=== PATIENT | female | born 1935 | race Caucasian/White ===

== ENCOUNTER 2018-01-17 11:50 | Inpatient (IN) | payer MEDICARE, MEDICAID ==
[~2018-01-17] VITALS: Ht 160 cm; Wt 40.4 kg
[2018-01-17] MEDS ORDERED: IV NORMAL SALINE 1000 ML BAG IV ONE (12:15)
[2018-01-17] MEDS ORDERED: POTA10TA15 PO (12:46)
[2018-01-17] MEDS ORDERED: VALS320T2 PO (12:46)
[2018-01-17] MEDS ORDERED: MELO15TA13 PO (12:46)
[2018-01-17] MEDS ORDERED: GLIP5TAB13 PO (12:46)
[2018-01-17] MEDS ORDERED: PANT40TA4 PO (12:46)
[2018-01-17] MEDS ORDERED: LEVO75TA PO (12:46)
[2018-01-17] MEDS ORDERED: ERGO2000 PO (12:46)
[2018-01-17 12:48] LABS: BASOPHILS % (AUTO) 0.3 % (0.0-2.0); EOSINOPHILS % (AUTO) 0.1 % (0.0-7.0); HEMATOCRIT 36.2 % (31.2-41.9); HEMOGLOBIN 11.5 g/dL (10.9-14.3); LYMPHOCYTES # (AUTO) 0.7 K/uL (20.0-40.0); LYMPHOCYTES % (AUTO) 16.5 % (20.5-51.5); MEAN CORPUSCULAR HEMOGLOBIN 26.2 uug (24.7-32.8); MEAN CORPUSCULAR HGB CONC 32 g/dL (32.3-35.6); MEAN CORPUSCULAR VOLUME 82.2 fL (75.5-95.3); MONOCYTES # (AUTO) 0.3 K/uL (2.0-10.0); MONOCYTES % (AUTO) 8.1 % (0.0-11.0); NEUTROPHILS # (AUTO) 3.2 K/uL (1.8-8.9); PLATELET COUNT (AUTO) 252 K/uL (179-408); RED BLOOD CELL COUNT(AUTO) 4.41 MIL/uL (3.63-4.92); WHITE BLOOD COUNT (AUTO) 4.3 K/uL (3.8-11.8)
[2018-01-17 12:55] LABS: CARBON DIOXIDE 31 mmol/L (21-32); CHLORIDE 100 mmol/L (98-107); CREATININE 1.3 mg/dL (0.6-1.3); GLUCOSE 98 mg/dL (74-106); POTASSIUM 3.8 mmol/L (3.5-5.1); UREA NITROGEN, BLOOD 22 mg/dL (7-18)
[2018-01-17] MEDS ORDERED: ATOR20TA PO ×2 (13:07)
[2018-01-17] MEDS ORDERED: OXYC-128 PO (13:07)
[2018-01-17] MEDS ORDERED: GABA-534 PO (13:07)
[2018-01-17] MEDS ORDERED: TRIA0.252 PO (13:07)
[2018-01-17] MEDS ORDERED: FLUO-120 PO (13:07)
[2018-01-17] MEDS ORDERED: ACET-2605 PO (13:07)
[2018-01-17] MEDS ORDERED: HYDR-3326 PO (13:07)
[2018-01-17] MEDS ORDERED: LEVE500T9 PO (13:07)
[2018-01-17 13:09] LABS: ALANINE AMINOTRANSFERASE 8 U/L (14-59); ALKALINE PHOSPHATASE 47 U/L (50-136); ASPARTATE AMINOTRANSFERASE 18 U/L (15-37); BILIRUBIN,DIRECT 0.2 mg/dL (0.0-0.2); BILIRUBIN,TOTAL 0.7 mg/dL (0.2-1.0); TOTAL PROTEIN, SERUM 8.5 g/dL (6.4-8.2)
[2018-01-17] MEDS ORDERED: predniSONE 10 MG TABLET PO ONE (13:30)
[2018-01-17] MEDS ORDERED: ALBUTEROL SULFATE 2.5 MG/3 ML NEBU NEB ONE (13:30)
[2018-01-17] MEDS ORDERED: IPRATROPIUM BROMIDE 0.5 MG/2.5 ML NEBU NEB ONE (13:30)
[2018-01-17 15:51] VITALS: BP 141/71
[2018-01-17] MEDS ORDERED: MORPHINE SULFATE 2 MG/1 ML DISP.SYRIN IV PRN (18:30)
[2018-01-17] MEDS ORDERED: MAGNESIUM HYDROXIDE 30 ML LIQUID UDC PO PRN (18:30)
[2018-01-17] MEDS ORDERED: HYDROCODONE/APAP 5-325MG TABLET PO PRN (18:30)
[2018-01-17] MEDS ORDERED: ONDANSETRON 4 MG/2 ML VIAL IV PRN (18:30)
[2018-01-17] MEDS ORDERED: ACETAMINOPHEN 325 MG TABLET PO PRN (18:30)
[2018-01-17] MEDS ORDERED: hydrALAZINE HCL 25 MG TABLET PO PRN (18:45)
[2018-01-17] MEDS ORDERED: ALBUTEROL SULFATE 2.5 MG/3 ML NEBU NEB PRN (18:45)
[2018-01-17 20:00] VITALS: BP 173/79
[2018-01-17] MEDS ORDERED: DOCUSATE SODIUM 250 MG CAPSULE PO SCH (21:00)
[2018-01-17] MEDS: DOCUSATE SODIUM 100 MG CAPSULE PO SCH ×2 (21:00→22:23)
[2018-01-17 21:30] VITALS: BP 137/78
[2018-01-17] MEDS: GABAPENTIN 300 MG CAPSULE PO SCH (21:57)
[2018-01-17] MEDS: VALSARTAN 160 MG TABLET PO SCH (21:57)
[2018-01-17] MEDS: LEVETIRACETAM 500 MG TABLET PO SCH (21:58)
[2018-01-17] MEDS: TEMAZEPAM 15 MG CAPSULE PO PRN (22:23)
[2018-01-17] MEDS: MORPHINE SULFATE 4 MG/1 ML DISP.SYRIN IV PRN (22:58)
[2018-01-17] MEDS ORDERED: ENALAPRILAT DIHYDRATE INJ 1.25 MG in IV NORMAL SALINE 50 ML IV PRN (23:30)
[2018-01-18 00:17] VITALS: BP 101/54
[2018-01-18 04:00] VITALS: BP 121/70
[2018-01-18 05:51] VITALS: BP 121/70
[2018-01-18] MEDS: LEVOTHYROXINE SODIUM 75 MCG TABLET PO SCH (06:40)
[2018-01-18] MEDS: PANTOPRAZOLE SODIUM 40 MG TABLET.DR PO SCH (06:40)
[2018-01-18 06:51] LABS: IRON, SERUM 37 ug/dL (50-175)
[2018-01-18 06:54] LABS: ALANINE AMINOTRANSFERASE 7 U/L (14-59); ALKALINE PHOSPHATASE 37 U/L (50-136); ASPARTATE AMINOTRANSFERASE 17 U/L (15-37); BILIRUBIN,TOTAL 0.4 mg/dL (0.2-1.0); CARBON DIOXIDE 29 mmol/L (21-32); CHLORIDE 103 mmol/L (98-107); CHOLESTEROL 195 mg/dL (<200); GLUCOSE 88 mg/dL (74-106); HDL CHOLESTEROL 55 mg/dL (40-60); MAGNESIUM 1.6 mg/dL (1.8-2.4); PHOSPHOROUS 4.1 mg/dL (2.5-4.9); POTASSIUM 3.2 mmol/L (3.5-5.1); TOTAL PROTEIN, SERUM 6.6 g/dL (6.4-8.2); TRIGLYCERIDES 88 MG/DL (30-150); UREA NITROGEN, BLOOD 17 mg/dL (7-18)
[2018-01-18 07:07] LABS: BASOPHILS % (AUTO) 0.2 % (0.0-2.0); EOSINOPHILS % (AUTO) 0.5 % (0.0-7.0); LYMPHOCYTES # (AUTO) 1.4 K/uL (20.0-40.0); LYMPHOCYTES % (AUTO) 44.3 % (20.5-51.5); MEAN CORPUSCULAR HEMOGLOBIN 26.3 uug (24.7-32.8); MEAN CORPUSCULAR HGB CONC 32 g/dL (32.3-35.6); MEAN CORPUSCULAR VOLUME 82.6 fL (75.5-95.3); MONOCYTES # (AUTO) 0.4 K/uL (2.0-10.0); MONOCYTES % (AUTO) 13.4 % (0.0-11.0); NEUTROPHILS # (AUTO) 1.3 K/uL (1.8-8.9); NEUTROPHILS % (AUTO) 41.6 % (38.5-71.5); PLATELET COUNT (AUTO) 207 K/uL (179-408); RED BLOOD CELL COUNT(AUTO) 3.81 MIL/uL (3.63-4.92)
[2018-01-18 07:11] LABS: THYROID STIMULATING HORMONE 1.218 mIU/mL (0.358-3.740)
[2018-01-18 07:26] LABS: HEMATOCRIT 31.5 % (31.2-41.9); WHITE BLOOD COUNT (AUTO) 3.2 K/uL (3.8-11.8)
[2018-01-18] MEDS: FLUOXETINE HCL 20 MG CAPSULE PO SCH (08:43)
[2018-01-18] MEDS: VALSARTAN 160 MG TABLET PO SCH ×2 (08:47→21:49)
[2018-01-18 11:48] VITALS: BP 125/78
[2018-01-18] MEDS ORDERED: POTASSIUM CHLORIDE 20 MEQ POWDER PACKET PO ONE (12:30)
[2018-01-18] MEDS: MAGNESIUM SULFATE/D5W 100 ML IV SCH ×2 (12:46→14:22)
[2018-01-18 15:49] VITALS: BP 121/80
[2018-01-18 20:04] VITALS: BP 122/65
[2018-01-18] MEDS: GABAPENTIN 300 MG CAPSULE PO SCH (21:47)
[2018-01-18] MEDS: TEMAZEPAM 15 MG CAPSULE PO PRN (21:48)
[2018-01-18] MEDS: LEVETIRACETAM 500 MG TABLET PO SCH (21:48)
[2018-01-18] MEDS: MORPHINE SULFATE 4 MG/1 ML DISP.SYRIN IV PRN (21:49)
[2018-01-19] MEDS ORDERED: DEXTROSE 50% 50 ML DISP.SYRIN IV PRN (02:30)
[2018-01-19] MEDS: BLOOD SUGAR DIAGNOSTIC 1 EACH STRIP VI SCH ×5 (02:43→23:58)
[2018-01-19] MEDS: IV D5/ 0.9% NACL 1,000 ML IV PRN ×2 (02:54→17:25)
[2018-01-19 04:06] VITALS: BP 97/57
[2018-01-19] MEDS: LEVOTHYROXINE SODIUM 75 MCG TABLET PO SCH (06:12)
[2018-01-19] MEDS: PANTOPRAZOLE SODIUM 40 MG TABLET.DR PO SCH (06:12)
[2018-01-19 07:54] LABS: BASOPHILS % (AUTO) 0.2 % (0.0-2.0); EOSINOPHILS % (AUTO) 0.3 % (0.0-7.0); HEMATOCRIT 29.3 % (31.2-41.9); HEMOGLOBIN 9.3 g/dL (10.9-14.3); LYMPHOCYTES # (AUTO) 1.4 K/uL (20.0-40.0); LYMPHOCYTES % (AUTO) 36.8 % (20.5-51.5); MEAN CORPUSCULAR HEMOGLOBIN 26.2 uug (24.7-32.8); MEAN CORPUSCULAR HGB CONC 32 g/dL (32.3-35.6); MEAN CORPUSCULAR VOLUME 82.2 fL (75.5-95.3); MONOCYTES # (AUTO) 0.5 K/uL (2.0-10.0); MONOCYTES % (AUTO) 12.1 % (0.0-11.0); NEUTROPHILS # (AUTO) 1.9 K/uL (1.8-8.9); NEUTROPHILS % (AUTO) 50.6 % (38.5-71.5); PLATELET COUNT (AUTO) 210 K/uL (179-408); RED BLOOD CELL COUNT(AUTO) 3.56 MIL/uL (3.63-4.92); WHITE BLOOD COUNT (AUTO) 3.8 K/uL (3.8-11.8)
[2018-01-19 08:08] LABS: CARBON DIOXIDE 29 mmol/L (21-32); CHLORIDE 104 mmol/L (98-107); GLUCOSE 103 mg/dL (74-106); PHOSPHOROUS 3.8 mg/dL (2.5-4.9); POTASSIUM 3.6 mmol/L (3.5-5.1); UREA NITROGEN, BLOOD 15 mg/dL (7-18)
[2018-01-19] MEDS: VALSARTAN 160 MG TABLET PO SCH ×2 (08:20→20:22)
[2018-01-19] MEDS: FLUOXETINE HCL 20 MG CAPSULE PO SCH (08:20)
[2018-01-19 09:37] LABS: ABG BASE EXCESS 0.9 mmol/L; ABG HCO3 26.3 mmol/L; ABG PCO2 45.7 mmHg (35.0-45.0); ABG PH 7.378 (7.350-7.450); ABG SITE RIGHT RADIAL; ABG TOTAL HEMOGLOBIN 10.1 G/dL (12.0-16.0); COHb 1.2 % (0.5-1.5); MetHb 0.3 % (0.0-1.5); O2Hb 93.6 % (94.0-97.0); VENT MODE Room Air
[2018-01-19] MEDS ORDERED: IOHEXOL 300MG/ML 100 ML INFUS..BTL ONE (11:14)
[2018-01-19] MEDS ORDERED: IV NORMAL SALINE 100 ML ONE (11:14)
[2018-01-19 12:00] VITALS: BP 161/84
[2018-01-19 15:00] VITALS: BP 113/62
[2018-01-19 15:21] LABS: *BILIRUBIN,URIN NEGATIVE (NEGATIVE); *BLOOD, URINE 1+ (NEGATIVE); *COLOR,URINE YELLOW (YELLOW); *KETONES,URINE NEGATIVE (NEGATIVE); *PROTEIN,URINE NEGATIVE (NEGATIVE); *UROBILINOGEN,URINE 0.2 E.U./dl (NORMAL); LEUKOCYTE ESTERASE ,URINE NEGATIVE (NEGATIVE); NITRITE, URINE POSITIVE (NEGATIVE); PH,URINE 6.5 (5.0-8.0); UGLUCOSE NEGATIVE (NEGATIVE)
[2018-01-19 15:54] LABS: *CLARITY,URINE HAZY (CLEAR)
[2018-01-19 15:55] LABS: BACTERIA,URINE MANY /HPF (NONE SEEN); SQUAMOUS EPITHELIAL CELL,UR MODERATE /HPF (NONE SEEN)
[2018-01-19 16:00] VITALS: BP 133/73
[2018-01-19 20:06] VITALS: BP 150/84
[2018-01-19] MEDS: GABAPENTIN 300 MG CAPSULE PO SCH (20:21)
[2018-01-19] MEDS: DOCUSATE SODIUM 100 MG CAPSULE PO SCH (20:21)
[2018-01-19] MEDS: LEVETIRACETAM 500 MG TABLET PO SCH (20:21)
[2018-01-19] MEDS: TEMAZEPAM 15 MG CAPSULE PO PRN (20:22)
[2018-01-19] MEDS: MORPHINE SULFATE 4 MG/1 ML DISP.SYRIN IV PRN (20:23)
[2018-01-20 04:06] VITALS: BP 116/66
[2018-01-20] MEDS: BLOOD SUGAR DIAGNOSTIC 1 EACH STRIP VI SCH ×3 (05:51→17:22)
[2018-01-20] MEDS: LEVOTHYROXINE SODIUM 75 MCG TABLET PO SCH (06:05)
[2018-01-20] MEDS: PANTOPRAZOLE SODIUM 40 MG TABLET.DR PO SCH (06:06)
[2018-01-20] MEDS: IV D5/ 0.9% NACL 1,000 ML IV PRN (06:30)
[2018-01-20 06:47] LABS: BASOPHILS % (AUTO) 0.4 % (0.0-2.0); EOSINOPHILS % (AUTO) 0.5 % (0.0-7.0); HEMATOCRIT 28.8 % (31.2-41.9); HEMOGLOBIN 9.1 g/dL (10.9-14.3); LYMPHOCYTES # (AUTO) 1.1 K/uL (20.0-40.0); LYMPHOCYTES % (AUTO) 32.2 % (20.5-51.5); MEAN CORPUSCULAR HEMOGLOBIN 25.7 uug (24.7-32.8); MEAN CORPUSCULAR HGB CONC 31 g/dL (32.3-35.6); MEAN CORPUSCULAR VOLUME 81.7 fL (75.5-95.3); MONOCYTES # (AUTO) 0.3 K/uL (2.0-10.0); MONOCYTES % (AUTO) 10.2 % (0.0-11.0); NEUTROPHILS # (AUTO) 1.8 K/uL (1.8-8.9); NEUTROPHILS % (AUTO) 56.7 % (38.5-71.5); PLATELET COUNT (AUTO) 206 K/uL (179-408); RED BLOOD CELL COUNT(AUTO) 3.53 MIL/uL (3.63-4.92); WHITE BLOOD COUNT (AUTO) 3.3 K/uL (3.8-11.8)
[2018-01-20 06:58] LABS: CARBON DIOXIDE 28 mmol/L (21-32); CHLORIDE 106 mmol/L (98-107); CREATININE 0.9 mg/dL (0.6-1.3); GLUCOSE 110 mg/dL (74-106); POTASSIUM 3.6 mmol/L (3.5-5.1); UREA NITROGEN, BLOOD 14 mg/dL (7-18)
[2018-01-20] MEDS: VALSARTAN 160 MG TABLET PO SCH ×2 (08:11→20:13)
[2018-01-20] MEDS: FLUOXETINE HCL 20 MG CAPSULE PO SCH (08:11)
[2018-01-20] MEDS ORDERED: NITR100C11 PO (11:14)
[2018-01-20 11:32] VITALS: BP 150/87
[2018-01-20 16:04] VITALS: BP 158/85
[2018-01-20 19:30] VITALS: BP 167/94
[2018-01-20] MEDS: GABAPENTIN 300 MG CAPSULE PO SCH (20:12)
[2018-01-20] MEDS: LEVETIRACETAM 500 MG TABLET PO SCH (20:12)
[2018-01-20] MEDS: DOCUSATE SODIUM 100 MG CAPSULE PO SCH (20:13)
[2018-01-20] MEDS ORDERED: BARIUM SULFATE 148 GM SUSP.RECON PO ONE (20:24)
[2018-01-20] MEDS ORDERED: BARIUM SULFATE 240 ML ORAL.SUSP PO ONE (20:24)
[2018-01-20 20:25] VITALS: BP 149/90
[2018-01-21 04:10] LABS: *IMMUNOGLOBULIN G, SERUM 1037 mg/dL (700-1600); IMMUNOGLOBULIN A, SERUM 296 mg/dL (64-422); IMMUNOGLOBULIN M, SERUM 60 mg/dL (26-217)
[2018-01-21 09:09] LABS: ALPHA-1-GLOBULIN 0.3 g/dL (0.0-0.4); ALPHA-2-GLOBULIN 0.7 g/dL (0.4-1.0); GAMMA GLOBULIN 1.1 g/dL (0.4-1.8); M-SPIKE Not Observed g/dL (Not Observed)
== END 2018-01-20 20:25 | disposition home health service (06) | DRG 640 ==
LOC: ER 12:02 → TELE 14:54 → MED 01-18 15:20
PROVIDERS: ADMIT Internal Medicine; ATTEND Internal Medicine
DX: R62.7 Adult failure to thrive (principal); N17.0 Acute kidney failure with tubular necrosis; E43 Unspecified severe protein-calorie malnutrition; J90 Pleural effusion, not elsewhere classified; C78.02 Secondary malignant neoplasm of left lung; J38.00 Paralysis of vocal cords and larynx, unspecified; E86.0 Dehydration; D64.9 Anemia, unspecified; R13.10 Dysphagia, unspecified; Z68.1 Body mass index [BMI] 19.9 or less, adult; N39.0 Urinary tract infection, site not specified; E83.42 Hypomagnesemia; E11.9 Type 2 diabetes mellitus without complications; I11.9 Hypertensive heart disease without heart failure; N28.1 Cyst of kidney, acquired; R53.1 Weakness; Z85.850 Personal history of malignant neoplasm of thyroid; Z90.49 Acquired absence of other specified parts of digestive tract; E78.5 Hyperlipidemia, unspecified; Z92.21 Personal history of antineoplastic chemotherapy; Z91.013 Allergy to seafood; Z90.710 Acquired absence of both cervix and uterus; Z86.73 Personal history of transient ischemic attack (TIA), and cerebral infarction without residual deficits; E89.0 Postprocedural hypothyroidism; E87.6 Hypokalemia; I77.810 Thoracic aortic ectasia; M19.90 Unspecified osteoarthritis, unspecified site; J44.9 Chronic obstructive pulmonary disease, unspecified; Z79.899 Other long term (current) drug therapy
CPT/HCPCS: 36415; 36600; 70030-TC; 70450; 70490; 71045; 71260; 74230; 82746; 82784; 83550; 83605; 83735; 84100; 84155; 84165; 84443; 85025; 85730; 86334; 87040; 92523; 92526; 92611; 93005; A4663; J2270; J3475; J3490; J7030; J7042; J7050; Q9967